=== PATIENT | female | born 1995 | race Caucasian/White ===

== ENCOUNTER 2017-04-21 20:14 | Emergency (ER) | payer OTHER ==
[2017-04-21 20:20] VITALS: BP 135/81; TEMP 98.1; BMI 33.0
--- NOTE | 2017-04-21 20:50 | ED.PDOC ---
General ED Provider: Dr. SEBASTIAN MCBRIDE Chief Complaint: Abdominal Pain Stated Complaint: Pateint reports diffuse abdominal cramping that started 5 days ago. occurs when as soon as she moves her bowels and last 4 days. The symtoms went away after 3 days but returned today. Time Seen by Physician: 20:47 Mode of Arrival: Walk-In Information Source: Patient Exam Limitations: No limitations Primary Care Provider: GERMAN ENCINAS Nursing and Triage Documentation Reviewed and Agree: Yes GI Complaint Exam - Abdominal Pain Complaint/Exam Onset: Gradual Duration: 5 days Symptoms Are: Resolved Timing: Intermittent Initial Severity: Severe Current Severity: None Location of Pain: Diffuse Radiates To: Reports: Inguinal. Denies: Chest, Back, Flank, LLQ, RLQ Character: Reports: Cramping Aggravating: Reports: None (except after bowel movement. ) Alleviating: Reports: None Associated Signs and Symptoms: Reports: Decreased appetite, Nausea. Denies: Diaphoresis, Fever, Cough, Chest pain, Dizziness, Back pain, Constipation, Blood in stool, Dysuria, Urinary frequency, Decreased urine output, Vaginal bleeding, Vaginal discharge, Vomiting, Diarrhea, Sore throat, Decreased activity AAA Risk Factors: Reports: None Cardiac Risk Factors: Reports: None Ectopic Risk Factors: Reports: None Ovarian Torsion Risk Factors: Reports: None Surgical Obstruction Risk Factors: Reports: None Related Surgical History: Reports: None Patient Rh Status: Unknown Differential Diagnoses: Irritable Bowel Syndrome, Ureteral Stone, UTI, , Ovarian Cyst Review of Systems - Review Of Systems Constitutional: Reports: Loss of appetite Eyes: Reports: No symptoms Ears, Nose, Mouth, Throat: Reports: No symptoms Respiratory: Reports: No symptoms GI: Reports: Abdominal pain : Reports: No symptoms Musculoskeletal: Reports: No symptoms Skin: Reports: No symptoms Neurological: Reports: No symptoms Endocrine: Reports: No symptoms All Other Systems: Reviewed and Negative Past Medical History - Past Medical History Previously Healthy: Yes Endocrine: Reports: Hypothyroid Cardiovascular: Reports: None Respiratory: Reports: None Hematological: Reports: None Gastrointestinal: Reports: None Genitourinary: Reports: None Neuro/Psych: Reports: None Musculoskeletal: Reports: None Cancer: Reports: None Last Menstrual Period: 04/21/17 - Surgical History General Surgical History: Reports: None - Family History Family History: Reports: None - Social History Smoking Status: Former smoker Hx Substance Use: No Alcohol Screening: None Physical Exam - Physical Exam Appearance: Ill-appearing, Obese Ill-appearing: None Pain Distress: None Eyes: DANIEL, EOMI, Conjunctiva clear Respiratory: Airway patent, Breath sounds clear, Breath sounds equal Cardiovascular: RRR, Pulses normal, No rub, No murmur GI/: Soft, Nontender, Bowel sounds normal Musculoskeletal: Normal strength, ROM intact, No edema, No calf tenderness Skin: Warm, Dry, Normal color Neurological: Sensation intact Psychiatric: Anxious Interpretation - Radiology Interpretation Radiology Interpretation By: ED Physician Radiology Results: Negative Exam Interpreted: Other (KUB ) Critical Care Note - Critical Care Note Total Time (mins): 0 Course - Course Hematology/Chemistry: 04/21/17 20:55 04/21/17 20:55 Orders, Labs, Meds: Lab Review 04/21/17 04/21/17 20:55 21:15 WBC 7.88 RBC 4.50 Hgb 13.3 Hct 37.6 MCV 83.6 MCH 29.6 MCHC 35.4 RDW Coeff of Nadeem 12.8 Plt Count 210 Immature Gran % (Auto) 0.1 Neut % (Auto) 74.4 Lymph % (Auto) 17.9 Edwards % (Auto) 6.0 Eos % (Auto) 1.3 Baso % (Auto) 0.3 Immature Gran # (Auto) 0.0 Neut # 5.9 Lymph # 1.4 Edwards # 0.5 Eos # 0.1 Baso # 0.0 Sodium 140 Potassium 3.9 Chloride 107 Carbon Dioxide 27 Anion Gap 9.9 BUN 9 Creatinine 0.69 Estimated GFR (MDRD) 108.00 BUN/Creatinine Ratio 13.04 Glucose 100 Calcium 9.2 Total Bilirubin 0.33 AST 23 ALT 22 Alkaline Phosphatase 118 H Total Protein 6.6 Albumin 3.7 Globulin 2.9 Albumin/Globulin Ratio 1.28 Amylase 58 Lipase 20 Urine Test Negative Orders Category Date Time Status AMYLASE Stat LAB 04/21/17 20:55 Completed CBC W/ AUTO DIFF Stat LAB 04/21/17 20:55 Completed COMPREHENSIVE METABOLIC PANEL Stat LAB 04/21/17 20:55 Completed LIPASE Stat LAB 04/21/17 20:55 Completed URINE Stat LAB 04/21/17 21:15 Completed KUB Stat RADS 04/21/17 20:48 Completed Vital Signs: Temp Pulse Resp BP Pulse Ox 06/15/17 20:15 98.1 F 87 16 135/81 98 Departure - Departure Time of Disposition: 21:55 Disposition: HOME SELF-CARE Discharge Problem: Abdominal pain Instructions: Abdominal Pain (ED) Condition: Good Pt referred to PMD for follow-up: Yes Additional Instructions: Take Bentyl as needed for Abdominal Cramping. Follow up with PCP in 3 days push fluids Prescriptions: Dicyclomine HCl [Bentyl] 10 mg PO TID #20 capsule Allergies/Adverse Reactions: Allergies lidocaine Adverse Reaction (Verified 10/17/16 08:13) Sulfa (Sulfonamide Antibiotics) Adverse Reaction (Verified 10/17/16 08:13) sulfamethoxazole [From Bactrim] Adverse Reaction (Verified 10/17/16 08:13) trimethoprim [From Bactrim] Adverse Reaction (Verified 10/17/16 08:13) Home Medications: Ambulatory Orders Dicyclomine HCl [Bentyl] 10 mg PO TID #20 capsule 04/21/17 Levothyroxine Sodium [Synthroid] 25 mcg PO DAILY 04/21/17 Disposition Discussed With: Patient, Family
[2017-04-21 21:00] LABS: BASOPHILS % (AUTO) 0.3 % (0.0-3.0); EOSINOPHILS # (AUTO) 0.1 K/ul (0.0-0.7); EOSINOPHILS % (AUTO) 1.3 % (0.0-7.0); HEMATOCRIT 37.6 % (37.0-47.0); HEMOGLOBIN 13.3 g/dl (12.0-16.0); IMMATURE GRANULOCYTE % (AUTO) 0.1 % (0.0-5.0); LYMPHOCYTES # (AUTO) 1.4 K/uL (0.60-3.4); LYMPHOCYTES % (AUTO) 17.9 (10.0-50.0); MEAN CORPUSCULAR HEMOGLOBIN 29.6 pg (27.0-31.0); MEAN CORPUSCULAR HGB CONC 35.4 (31.8-35.4); MEAN CORPUSCULAR VOLUME 83.6 fl (81.0-99.0); MONOCYTES # (AUTO) 0.5 K/uL (0.4-2.0); NEUTROPHILS # (AUTO) 5.9 K/ul (2.0-6.9); NEUTROPHILS % (AUTO) 74.4; PLATELET COUNT 210 10^3/uL (140-440); WHITE BLOOD COUNT 7.88 K/ul (4.6-10.2)
[2017-04-21 21:22] LABS: ALBUMIN 3.7 g/dL (3.4-5.0); ALBUMIN/GLOBULIN RATIO 1.28; ANION GAP 9.9; BILIRUBIN,TOTAL 0.33 mg/dL (0.00-1.20); BUN/CREATININE RATIO 13.04; CALCIUM 9.2 mg/dL (8.2-10.2); CREATININE 0.69 mg/dL (0.60-1.30); POTASSIUM 3.9 mmol/L (3.5-5.10); TOTAL PROTEIN 6.6 g/dL (6.4-8.2)
[2017-04-21 21:29] LABS: URINE PREGNANCY INTERNAL QC INTERNAL QC VALID
--- NOTE | 2017-04-21 21:47 | DI ---
Exam: Flat plate of the abdomen. Clinical indication: Abdominal cramping.. Findings: There is no free intra-abdominal gas on this supine radiograph. There is no abnormal bow el gas pattern. The soft tissues are grossly unremarkable. The visualized bony structures are unre markable. Impression: Unremarkable flat plate of the abdomen.
== END 2017-04-21 22:00 | disposition home or self-care (01) ==
LOC: ED 20:14
DX: R10.84 Generalized abdominal pain (principal)
CPT/HCPCS: 36415; 80053; 81025; 82150; 83690; 85025; 99283

== ENCOUNTER 2017-05-29 20:35 | Emergency (ER) | payer OTHER ==
[2017-05-29 20:46] VITALS: BMI 37.1
[2017-05-29] MEDS ORDERED: SODIUM CHLORIDE 1,000 ML IV STA ×2 (21:02)
[2017-05-29] MEDS ORDERED: TORADOL IVP STA (21:02)
[2017-05-29] MEDS ORDERED: ROCEPHIN 1 GM in SODIUM CHLORIDE 50 ML IV STA (21:02)
[2017-05-29 21:23] LABS: BASOPHILS % (AUTO) 0.2 % (0.0-3.0); EOSINOPHILS # (AUTO) 0.1 K/ul (0.0-0.7); EOSINOPHILS % (AUTO) 0.3 % (0.0-7.0); HEMATOCRIT 35.7 % (37.0-47.0); HEMOGLOBIN 12.5 g/dl (12.0-16.0); IMMATURE GRANULOCYTE % (AUTO) 0.3 % (0.0-5.0); LYMPHOCYTES # (AUTO) 0.8 K/uL (0.60-3.4); LYMPHOCYTES % (AUTO) 5.9 (10.0-50.0); MEAN CORPUSCULAR HEMOGLOBIN 29.6 pg (27.0-31.0); MEAN CORPUSCULAR VOLUME 84.6 fl (81.0-99.0); MONOCYTES # (AUTO) 0.8 K/uL (0.4-2.0); MONOCYTES % (AUTO) 5.3 (0-10); NEUTROPHILS # (AUTO) 12.6 K/ul (2.0-6.9); PLATELET COUNT 172 10^3/uL (140-440); RED BLOOD COUNT 4.22 10^6/ul (4.20-5.40); WHITE BLOOD COUNT 14.34 K/ul (4.6-10.2)
[2017-05-29 21:28] LABS: BILIRUBIN,URINE Negative (NEGATIVE); KETONES,URINE Negative (NEGATIVE); LEUKOCYTE ESTERASE ,URINE 2+ (NEGATIVE); NITRITE,URINE Negative (NEGATIVE); PROTEIN,URINE Negative (NEGATIVE); URINE, BLOOD Negative (NEGATIVE)
[2017-05-29 21:29] LABS: URINE PREGNANCY INTERNAL QC INTERNAL QC VALID
[2017-05-29 21:33] LABS: ADD URINE MICROSCOPIC YES
[2017-05-29 21:34] LABS: BACTERIA,URINE 1+ (NOT PRESENT)
[2017-05-29] MEDS ORDERED: ROCEPHIN ONE (21:37)
[2017-05-29 21:38] LABS: FLU INTERNAL QC INTERNAL QC VALID; RAPID FLU A NEGATIVE (NEGATIVE); RAPID FLU B NEGATIVE (NEGATIVE)
[2017-05-29 21:43] LABS: ALBUMIN 3.6 g/dL (3.4-5.0); ALBUMIN/GLOBULIN RATIO 1.09; ANION GAP 14.8; BUN/CREATININE RATIO 10.44; CALCIUM 8.6 mg/dL (8.2-10.2); CREATININE 0.67 mg/dL (0.60-1.30); POTASSIUM 3.8 mmol/L (3.5-5.10); TOTAL PROTEIN 6.9 g/dL (6.4-8.2)
--- NOTE | 2017-05-29 21:53 | CT ---
Exam: CT scan of the thorax without contrast. Date: 05/29/2017. Comparison: None. HISTORY: Cough and fever. TECHNIQUE: Helical scan of the thorax was performed without contrast. FINDINGS: The thoracic inlet axillary regions are normal. No suspicious mediastinal adenopathy is seen. The caliber of the thoracic aorta and cardiac chambers are normal. The upper spleen and live r have a uniform attenuation. The thoracic spine and ribs are normal. Evaluation at lung window settings does not demonstrate any suspicious pulmonary nodules, pleural fl uid or consolidation. The tracheobronchial tree is patent. Impression: No acute intrathoracic findings.
--- NOTE | 2017-05-29 22:05 | CT ---
EXAM: CT abdomen pelvis without contrast HISTORY: Fever, history UTI COMPARISON: 12/07/2014 TECHNIQUE: Serial axial images of the abdomen pelvis were performed from the lung bases through the inferior pelvis without contrast. These were viewed in multiple planes. FINDINGS: Images of the lower thorax show no pulmonary infiltrate. No pleural fluid is seen. Abdomen. There is no intrperitoneal free air. The liver, spleen, pancreas, adrenal glands are unremarkable. There is no renal calculus. No obstruction of either kidney or ureter is seen. There is no cholel ithiasis or biliary ductal dilatation seen. Aorta normal caliber. No abdominal adenopathy. The Th ere is no ascites. There is no small bowel obstruction or bowel wall thickening. The appendix is n ormal. Pelvis. Uterus is midline. There is a prominent 3.1 x 3.2 cm right ovarian/adnexal cyst. There is no free fluid the pelvis. IMPRESSION: 1. There is no bowel obstruction or inflammation. Appendix normal. 2. No renal calcification. No obstruction of either kidney or ureter. No perinephric edema. 3. No cholelithiasis or biliary duct dilatation. 4. There is a prominent 3.1 x 3.2 cm right ovarian/adnexal cyst. Follow-up outpatient ultrasound c ould be performed to further assess.
[2017-05-29] MEDS ORDERED: PHENERGAN 25 MG/ML VIAL 12.5 MG in SODIUM CHLORIDE 50 ML IV STA (22:10)
[2017-05-29] MEDS ORDERED: DILAUDID 1 MG/ML SYRINGE IVP STA (22:10)
[2017-05-29] MEDS ORDERED: PHENERGAN 25 MG/ML VIAL ONE (22:38)
[2017-05-29] MEDS ORDERED: VERSED ONE (22:40)
--- NOTE | 2017-05-29 22:42 | CT ---
EXAM: CT scan brain without contrast HISTORY: Headache COMPARISON: None. FINDINGS: Contiguous axial images obtained from the skull base to the convexities without contrast utilizing 5-mm collimation. Sagittal and coronal reconstructions were imaged reviewed. The ventric les and CSF spaces are within normal limits. There are no acute intracranial findings. The visuali zed paranasal sinuses and mastoid air cells are clear. The bony calvarium is intact. IMPRESSION: No acute intracranial findings.
--- NOTE | 2017-05-29 23:21 | ED.PDOC ---
Conscious Sedation - Pre-op Assessment Weight: 230 lb NPO Since: p1600 Procedure: lumbar puncture Surgical History: NONE Previous Anesthesia Difficulty: No Level Of Consciousness: Awake - Medical History Past Medical History: Thyroid, Anemia Other History: FREQUENT KIDNEY INFECTIONS - Physical Exam Heart Rate/Rhythm: Regular Rhythm, Regular Rate Lung Sounds: Clear HEENT Within Normal Limits: Yes Test Negative: Yes - Anesthesia Care Plan Anes. Plan Discussed with Patient/Family Permit Signed: Yes Risk and Benefits Discussed with Patient and Family: Yes Patient and Family Agree and Understand: Yes All Patient's and Family's Questions Answered: Yes - Procedure Start Time of Procedure: 22:45 End Time of Procedure: 23:05 - Post-Op Anesthesia Follow-up Time of Post-Anesthesia Follow-up: 23:30 (no after anes problems noted, pt discharged within 24 hr.)
--- NOTE | 2017-05-29 23:23 | ED.PDOC ---
Procedures - Lumbar Puncture Position of Patient: Lateral Decubitis Local Anesthetic Used: Yes Gauge of Spinal needle: 22 Lumbar Space Used for Insertion: L 4/5 Number of Attempts: 1 Spinal Fluid Obtained: Yes Fluid Description: Present: Clear Opening Pressure (mm/H2O): 34cm H2O Conscious Sedation - Pre-op Assessment Weight: 230 lb NPO Since: p1600 Procedure: lumbar puncture Surgical History: NONE Previous Anesthesia Difficulty: No Level Of Consciousness: Awake - Medical History Past Medical History: Thyroid, Anemia Other History: FREQUENT KIDNEY INFECTIONS - Physical Exam Heart Rate/Rhythm: Regular Rhythm, Regular Rate Lung Sounds: Clear HEENT Within Normal Limits: Yes Test Negative: Yes
--- NOTE | 2017-05-29 23:43 | ED.PDOC ---
General ED Provider: Dr. EDWINA OLIVERA-ER Chief Complaint: Fever Stated Complaint: ayush had fever and de [place] since last night Time Seen by Physician: 20:40 Mode of Arrival: Walk-In Information Source: Patient Exam Limitations: No limitations Primary Care Provider: GERMAN ENCINAS Nursing and Triage Documentation Reviewed and Agree: Yes Neurological Complaint Exam - Headache Complaint/Exam Onset: Gradual Duration: several hours Symptoms Are: Still present Timing: Constant Episodes Lasting: Hours Worst Headache Ever: No Initial Severity: Mild Current Severity: Moderate Location: Diffuse Character: Reports: Dull, Throbbing, Pressure Aggravating: Reports: Bright lights Alleviating: Reports: None Associated Signs and Symptoms: Reports: Nausea, Fever. Denies: Dizziness, Seizure, Vomiting, Sinus pressure, Neck pain, Neck stiffness, Visual changes Related History: Denies: Recent trauma, Remote trauma Related Surgical History: Reports: None SAH Risk Factors: Reports: None Meningitis Risk Factors: Reports: None SDH Risk Factors: Reports: None Temporal Arteritis Risk Factors: Reports: Female, Normal Head CT Within Last 12 Months: No Fundoscopic Exam: Present: Normal Findings Papilledema Present: No Temporal Artery Tenderness: Present: None Sinus Tenderness: Present: None TMJ Tenderness: Present: None Glascow Coma Scale (see protocol): 15 Meningeal Signs Positive: No Pain on Passive Flexion-Positive Kernig's: No ROM Limited In: No Limitiations Focal Weakness: Present: None Focal Sensory Loss: Present: None Gait: Normal Nystagmus Present: No Gag Reflex Present: Yes [id number]: Normal Findings Romberg Test Positive: No Babinski Sign: Negative Right, Negative Left Heel to Toe Normal: Yes Differential Diagnoses: Meningitis, Viral Syndrome, Other Review of Systems - Review Of Systems Constitutional: Reports: Chills, Fever, Weakness Eyes: Reports: No symptoms Ears, Nose, Mouth, Throat: Reports: No symptoms Respiratory: Reports: No symptoms Cardiac: Reports: No symptoms GI: Reports: No symptoms : Reports: No symptoms Musculoskeletal: Reports: Muscle pain Skin: Reports: No symptoms Neurological: Reports: No symptoms Endocrine: Reports: No symptoms Hematologic/Lymphatic: Reports: No symptoms All Other Systems: Reviewed and Negative Past Medical History - Past Medical History Previously Healthy: Yes Endocrine: Reports: Hypothyroid Cardiovascular: Reports: None Respiratory: Reports: None Hematological: Reports: None Gastrointestinal: Reports: None Genitourinary: Reports: None Neuro/Psych: Reports: None Musculoskeletal: Reports: None Cancer: Reports: None Last Menstrual Period: 35 DAYS AGO, PERIODS ARE NOT REGULAR - Surgical History General Surgical History: Reports: None - Family History Family History: Reports: None - Social History Smoking Status: Current every day smoker, Light tobacco smoker Hx Substance Use: No Alcohol Screening: None Lives: With family - Immunizations Tetanus Shot up to Date: Yes (TDAP 2015) Physical Exam - Physical Exam Appearance: Well-appearing, No pain distress, Well-nourished Pain Distress: Moderate Eyes: DANIEL, EOMI, Conjunctiva clear ENT: Ears normal, Nose normal, Oropharynx normal Neck: Supple Respiratory: Airway patent Cardiovascular: RRR, Pulses normal, No rub, No murmur GI/: Soft, Nontender, No masses, Bowel sounds normal, No Organomegaly Musculoskeletal: Normal strength, ROM intact, No edema, No calf tenderness Skin: Warm Neurological: Sensation intact, Alert, Oriented Psychiatric: Affect appropriate, Mood appropriate Interpretation - Radiology Interpretation Radiology Interpretation By: Radiologist Radiology Results: Negative Exam Interpreted: CT Scan Procedures - Lumbar Puncture Position of Patient: Lateral Decubitis Local Anesthetic Used: Yes Gauge of Spinal needle: 22 Lumbar Space Used for Insertion: L4 Number of Attempts: 1 Spinal Fluid Obtained: Yes Fluid Description: Present: Clear Opening Pressure (mm/H2O): 30 Re-Evaluation - Re-Evaluation Time of Re-Evaluation: 05:54 Status: Improved (no de [place] ve[place] or fever) Vital Signs Stable: Yes Pain Level: 1 Appearance: NAD Lungs: Clear Skin: Warm and Dry Neuro: Alert and Oriented X3 CV: RRR Critical Care Note - Critical Care Note Total Time (mins): 30 Course - Course Hematology/Chemistry: 05/29/17 21:15 05/29/17 21:15 Orders, Labs, Meds: Lab Review 05/29/17 05/29/17 05/29/17 21:02 21:15 23:06 WBC 14.34 H RBC 4.22 Hgb 12.5 Hct 35.7 L MCV 84.6 MCH 29.6 MCHC 35.0 RDW Coeff of Nadeem 13.0 Plt Count 172 Immature Gran % (Auto) 0.3 Neut % (Auto) 88.0 Lymph % (Auto) 5.9 L Thayer % (Auto) 5.3 Eos % (Auto) 0.3 Baso % (Auto) 0.2 Immature Gran # (Auto) 0.0 Neut # 12.6 H Lymph # 0.8 Thayer # 0.8 Eos # 0.1 Baso # 0.0 Sodium 138 Potassium 3.8 Chloride 105 Carbon Dioxide 22 Anion Gap 14.8 BUN 7 Creatinine 0.67 Estimated GFR (MDRD) 112.00 BUN/Creatinine Ratio 10.44 Glucose 98 Lactic Acid 10.0 Calcium 8.6 Total Bilirubin 1.00 AST 33 ALT 28 Alkaline Phosphatase 151 H Total Protein 6.9 Albumin 3.6 Globulin 3.3 Albumin/Globulin Ratio 1.09 Amylase 47 Lipase 11 Procalcitonin < 0.05 Urine Color Yellow Urine Clarity Slightly Urine pH 7.[address] [place] 1.015 Urine Protein Negative Urine Glucose (UA) Negative Urine Ketones Negative Urine Blood Negative Urine Nitrite Negative Urine Bilirubin Negative Urine Urobilinogen 1.0 Ur Leukocyte Esterase 2+ Urine Microscopic WBC 5-10 Ur Squamous Epith Cells 2-5 Urine Bacteria 1+ Urine Test Negative CSF Appearance Clear CSF Color Colorless CSF WBC Comment 2 CSF RBC Comment 0 CSF Neutrophils % 2 CSF Lymphocytes % 0 L CSF Monocytes % 0 L CSF Eosinophils % 0 CSF Basophils % 0 Influenza A (Rapid) Negative Influenza B (Rapid) Negative Orders Category Date Time Status ED IV/MEDIPORT/POWERPORT .ONCE EMERGENCY 05/29/17 21:02 Active AMYLASE Stat LAB 05/29/17 21:15 Completed BLOOD CULTURE Stat LAB 05/29/17 21:15 Received CBC W/ AUTO DIFF Stat LAB 05/29/17 21:15 Completed CEREBROSPINAL FLUID CULTURE Stat LAB 05/29/17 23:06 Received COMPREHENSIVE METABOLIC PANEL Stat LAB 05/29/17 21:15 Completed CSF CELL COUNT WITH DIFF Stat LAB 05/29/17 23:06 Completed EHRLICHIA DNA, PCR Stat LAB 05/29/17 21:15 Received GLUCOSE,CSF Stat LAB 05/29/17 23:06 Received LACTIC ACID Stat LAB 05/29/17 21:15 Completed LIPASE Stat LAB 05/29/17 21:15 Completed MOLECULAR GROUP A STREP Stat LAB 05/29/17 21:02 Results PROCALCITONIN Stat LAB 05/29/17 21:15 Completed PROTEIN [TOTAL PROTEIN,CSF] Stat LAB 05/29/17 23:06 Received RAPID FLU A/B Stat LAB 05/29/17 21:02 Completed [facility] SPOTTED FEVER,IgG Stat LAB 05/29/17 21:15 Received ROLA MCGOWAN SPOTTED FEVER,IgM Stat LAB 05/29/17 21:15 Received STREP SCREEN Stat LAB 05/29/17 21:02 Results URINALYSIS C & S IF INDICATED Stat LAB 05/29/17 21:02 Completed URINE CULTURE Stat LAB 05/29/17 21:34 Received URINE Stat LAB 05/29/17 21:02 Completed 0.9 % Sodium Chloride [Saline Flush] MEDS 05/29/17 21:02 Ordered 1 syr IVF PRN PRN Acetaminophen [Tylenol] MEDS 05/30/17 00:52 Discontinued 650 mg PO ONCE STA Ceftriaxone Sodium [Rocephin] MEDS 05/29/17 21:37 Discontinued 1 gm .ROUTE .STK-MED ONE Ceftriaxone Sodium [Rocephin] 1 gm MEDS 05/29/17 21:02 Discontinued 0.9 % Sodium Chloride [Sodium Chloride] 50 ml IV ONCE Diphenhydramine Inj [Benadryl] MEDS 05/30/17 02:54 Discontinued 25 mg IVP ONCE STA Doxycycline Hyclate Inj [Doxy-100] 100 mg MEDS 05/30/17 01:31 Discontinued 0.9 % Sodium Chloride [Sodium Chloride] 250 ml IV ONCE Hydromorphone HCl [Dilaudid 1 mg/ml Syringe] MEDS 05/30/17 00:52 Discontinued 0.5 mg IVP ONCE STA Hydromorphone HCl [Dilaudid 1 mg/ml Syringe] MEDS 05/29/17 22:10 Discontinued 1 mg IVP ONCE STA Ketorolac Tromethamine [Toradol] MEDS 05/29/17 21:02 Discontinued 30 mg IVP ONCE STA Midazolam HCl Inj [Versed] MEDS 05/29/17 22:40 Discontinued 5 mg .ROUTE .STK-MED ONE Promethazine HCl [Phenergan 25 mg/ml Vial] MEDS 05/29/17 22:38 Discontinued 25 mg .ROUTE .STK-MED ONE Promethazine HCl [Phenergan 25 mg/ml Vial] 12.5 mg MEDS 05/29/17 22:10 Discontinued 0.9 % Sodium Chloride [Sodium Chloride] 50 ml IV ONCE Sodium Chloride 0.9% [Sodium Chloride] 1,000 ml MEDS 05/29/17 21:02 Discontinued IV BOLUS Sodium Chloride 0.9% [Sodium Chloride] 1,000 ml MEDS 05/29/17 21:02 Discontinued IV BOLUS Vancomycin HCl [Vancomycin] 1 gm MEDS 05/29/17 23:49 Discontinued 0.9 % Sodium Chloride [Sodium Chloride] [address] ABDOMEN/PELVIS WO CONTRAST Stat RADS 05/29/17 21:[address] CHEST W/O CONTRAST Stat RADS 05/29/17 21:[address] HEAD W/O CONTRAST Stat RADS 05/29/17 22:12 Completed Medications Generic Name Dose Route Start Last Admin Trade Name Freq PRN Reason Stop Dose Admin Sodium Chloride 1 syr 05/29/17 21:02 05/29/17 22:06 Saline Flush IVF 1 syr PRN PRN Administration To flush IV Discontinued Medications Generic Name Dose Route Start Last Admin Trade Name Freq PRN Reason Stop Dose Admin Acetaminophen 650 mg 05/30/17 00:52 05/30/17 01:03 Tylenol PO 05/30/17 00:53 650 mg ONCE STA Administration Diphenhydramine HCl 25 mg 05/30/17 02:54 05/30/17 03:09 Benadryl IVP 05/30/17 02:55 25 mg ONCE STA Administration Hydromorphone HCl 1 mg 05/29/17 22:10 05/29/17 23:58 Dilaudid 1 Mg/Ml Syringe IVP 05/29/17 22:11 Not Given ONCE STA Hydromorphone HCl 0.5 mg 05/30/17 00:52 05/30/17 01:03 Dilaudid 1 Mg/Ml Syringe IVP 05/30/17 00:53 0.5 mg ONCE STA Administration Ceftriaxone Sodium 1 gm/ 50 mls @ 75 mls/hr 05/29/17 21:02 05/29/17 22:06 Sodium Chloride IV 05/29/17 21:41 75 mls/hr ONCE STA Administration Sodium Chloride 1,000 mls @ 1,000 mls/hr 05/29/17 21:02 05/29/17 22:06 Sodium Chloride IV 05/29/17 22:01 1,000 mls/hr BOLUS STA Administration Sodium Chloride 1,000 mls @ 500 mls/hr 05/29/17 21:02 05/30/17 03:10 Sodium Chloride IV 05/29/17 23:01 500 mls/hr BOLUS STA Administration Promethazine HCl 12.5 mg/ 50.5 mls @ 75 mls/hr 05/29/17 22:10 05/30/17 00:00 Sodium Chloride IV 05/29/17 22:50 Not Given ONCE STA Vancomycin HCl 1 gm/ Sodium 250 mls @ 250 mls/hr 05/29/17 23:49 05/30/17 00: 24 Chloride IV 05/30/17 00:48 250 mls/hr ONCE STA Administration Doxycycline Hyclate 100 mg/ 250 mls @ 100 mls/hr 05/30/17 01:31 05/30/17 01: 42 Sodium Chloride IV 05/30/17 04:00 100 mls/hr ONCE STA Administration Ketorolac Tromethamine 30 mg 05/29/17 21:02 05/29/17 22:06 Toradol IVP 05/29/17 21:03 30 mg ONCE STA Administration both she and her are quite certain no tick bites in the past 3 weeks Vital Signs: Temp Pulse Resp BP Pulse Ox 05/30/17 05:08 98.5 F 72 16 105/59 L 99 05/30/17 02:56 99.6 F 05/30/17 00:49 100.4 F H 05/29/17 20:36 101.6 F H 95 H 20 148/81 H 99 Departure - Departure Time of Disposition: 05:54 Disposition: HOME SELF-CARE Discharge Problem: Viral syndrome Instructions: Fever in Adults (ED) Condition: Good Pt referred to PMD for follow-up: Yes Additional Instructions: drink fluids today--careful in getting up from supine posiition....motrin for fever or pain===f/u with pcp Allergies/Adverse Reactions: Allergies lidocaine Adverse Reaction (Verified 05/29/17 20:45) Dizziness Sulfa (Sulfonamide Antibiotics) Adverse Reaction (Verified 05/29/17 20:45) Anaphylaxis sulfamethoxazole [From Bactrim] Adverse Reaction (Verified 05/29/17 20:45) Anaphylaxis trimethoprim [From Bactrim] Adverse Reaction (Verified 05/29/17 20:45) Anaphylaxis Home Medications: Ambulatory Orders Levothyroxine Sodium [Synthroid] 25 mcg PO DAILY 04/21/17 Dicyclomine HCl [Bentyl] 10 mg PO TID PRN 05/29/17 Disposition Discussed With: Patient, Family
[2017-05-29] MEDS ORDERED: VANCOMYCIN 1 GM in SODIUM CHLORIDE 250 ML IV STA (23:49)
[2017-05-30 00:03] LABS: APPEARANCE,CSF CLEAR (CLEAR); COLOR,CSF COLORLESS (COLORLESS)
[2017-05-30 00:04] LABS: BASOPHILS,CSF 0 % (0-1)
[2017-05-30] MEDS ORDERED: VERSED IVP STA (00:05)
[2017-05-30 00:07] LABS: WHITE BLOOD CELL,CSF 2 cells/mm (0-5)
[2017-05-30 00:08] LABS: LYMPHOCYTES,CSF 0 % (40-80)
[2017-05-30] MEDS ORDERED: TYLENOL PO STA (00:52)
[2017-05-30] MEDS ORDERED: DILAUDID 1 MG/ML SYRINGE IVP STA (00:52)
[2017-05-30] MEDS ORDERED: DOXY-100 100 MG in SODIUM CHLORIDE 250 ML IV STA (01:31)
[2017-05-30] MEDS ORDERED: BENADRYL IVP STA (02:54)
[2017-05-30 05:09] VITALS: BP 105/59; TEMP 98.5
== END 2017-05-30 06:00 | disposition home or self-care (01) ==
LOC: ED 20:35
DX: B34.9 Viral infection, unspecified (principal); F17.210 Nicotine dependence, cigarettes, uncomplicated
CPT/HCPCS: 36415; 62270; 80053; 81001; 81025; 82150; 82945; 83605; 83690; 84145; 84157; 85025; 86757; 87040; 87070; 87086; 87651; 87798; 87804; 87880; 89051; 96361; 96365; 96367; 96375; 99285

== ENCOUNTER 2018-06-24 03:43 | Emergency (ER) | payer OTHER ==
[2018-06-24 04:18] VITALS: BP 137/83; TEMP 98.4; BMI 37.9
[2018-06-24] MEDS ORDERED: MORPHINE 2 MG/ML SYRINGE IVP STA (04:24)
[2018-06-24] MEDS ORDERED: ZOFRAN 4 MG/2 ML IVP STA (04:24)
[2018-06-24] MEDS ORDERED: SODIUM CHLORIDE 1,000 ML IV STA (04:25)
--- NOTE | 2018-06-24 05:51 | ED.PDOC ---
General ED Provider: Dr. EDWINA OLIVERA-ER Chief Complaint: Chest Pain Stated Complaint: my chest hurts and it goes into my back Time Seen by Physician: 04:00 Mode of Arrival: Walk-In Information Source: Patient Exam Limitations: No limitations Primary Care Provider: GERMAN ENCINAS Nursing and Triage Documentation Reviewed and Agree: Yes Does patient meet sepsis criteria?: No System Inflammatory Response Syndrome: Not Applicable Sepsis Protocol: For patient's 13 years and over: Temp is 96.8 and below OR 101 and greater Pulse >90 BPM Resp >20/minute Acutely Altered Mental Status Are patient's symptoms suggestive of a new infection, such as: -Pneumonia -Skin, Soft Tissue -Endocarditis -UTI -Bone, Joint Infection -Implantable Device -Acute Abdominal Infection -Wound Infection -Meningitis -Blood Stream Catheter Infection -Unknown Cardiovascular Complaint Exam - Chest Pain Complaint/Exam Onset: Gradual Duration: 11/2 hrs Symptoms Are: Still present Timing: Constant Initial Severity: Mild Current Severity: Mild Location: Reports: Upper sternal Pain Radiates: Reports: Back Character: Reports: Dull, Pressure Aggravating: Reports: None Alleviating: Reports: None Associated Signs and Symptoms: Denies: Diaphoresis, Nausea, Vomiting, Fever, Palpitations, Cough, Hemoptysis, Back pain, Abdominal pain, Dizziness, Short of air, Calf pain, Calf swelling Related Surgical History: Reports: None History of Healthcare-Acquired Pneumonia: Reports: No AMI/ACS Risk Factors: Reports: None TAD Risk Factors: Reports: None Pulmonary Embolism Risk Factors: Reports: None Prior Care for this Complaint: No Recent Stress Test: No Recent Echo/LV Function: No JVD Present: No Subcutaneous Emphysema Present: No Diminshed Breath Sounds: No Reproducible Chest Wall Pain: No Bilateral Pulses Present: Yes Unequal Pulses Noted: No Quality Indicator For Non-Traumatic Chest Pain/Syncope: EKG Performed Review of Systems - Review Of Systems Constitutional: Reports: No symptoms Eyes: Reports: No symptoms Ears, Nose, Mouth, Throat: Reports: No symptoms Respiratory: Reports: No symptoms Cardiac: Reports: No symptoms GI: Reports: No symptoms : Reports: No symptoms Musculoskeletal: Reports: Back pain Skin: Reports: No symptoms Neurological: Reports: No symptoms Endocrine: Reports: No symptoms Hematologic/Lymphatic: Reports: No symptoms All Other Systems: Reviewed and Negative Past Medical History - Past Medical History Previously Healthy: Yes Endocrine: Reports: Hypothyroid Cardiovascular: Reports: None Respiratory: Reports: None Hematological: Reports: None Gastrointestinal: Reports: None Genitourinary: Reports: None Neuro/Psych: Reports: None Musculoskeletal: Reports: None Cancer: Reports: None Last Menstrual Period: 2017 - Surgical History General Surgical History: Reports: None - Family History Family History: Reports: None - Social History Smoking Status: Former smoker Hx Substance Use: No Alcohol Screening: None - Immunizations Tetanus Shot up to Date: Yes Physical Exam - Physical Exam Appearance: Well-appearing, No pain distress, Well-nourished Eyes: DANIEL, EOMI, Conjunctiva clear ENT: Ears normal, Nose normal, Oropharynx normal Neck: Supple Respiratory: Airway patent Cardiovascular: RRR GI/: Soft, Nontender, No masses, Bowel sounds normal, No Organomegaly Musculoskeletal: Normal strength, ROM intact, No edema, No calf tenderness Skin: Warm, Dry, Normal color Neurological: Sensation intact, Motor intact, Reflexes intact, Cranial nerves intact, Alert, Oriented Psychiatric: Affect appropriate, Mood appropriate Interpretation - Radiology Interpretation Radiology Interpretation By: Radiologist Radiology Results: Positive Exam Interpreted: CT Scan - EKG Interpretation Time of EKG #1: 06:02 Rate: Normal Rhythm: Sinus Ectopy: None Jackson: NL ST Segment: Normal Interpretation: nsr Physician Notification - Case Discussed Physician Notified: dr marie Time of Notification: 06:37 Critical Care Note - Critical Care Note Total Time (mins): 30 Course - Course Hematology/Chemistry: 06/24/18 04:20 06/24/18 04:20 Orders, Labs, Meds: Lab Review 06/24/18 06/24/18 06/24/18 04:20 04:20 04:20 WBC 7.01 RBC 4.29 Hgb 12.7 Hct 37.0 MCV 86.2 MCH 29.6 MCHC 34.3 RDW Coeff of Nadeem 13.2 Plt Count 170 Immature Gran % (Auto) 0.3 Neut % (Auto) 66.6 Lymph % (Auto) 23.5 [place] % (Auto) 6.4 Eos % (Auto) 3.1 Baso % (Auto) 0.1 Immature Gran # (Auto) 0.0 Neut # (Auto) 4.7 Lymph # (Auto) 1.7 [place] # (Auto) 0.5 Eos # (Auto) 0.2 Baso # (Auto) 0.0 Sodium 141 Potassium 3.8 Chloride 106 Carbon Dioxide 27 Anion Gap 11.8 BUN 12 Creatinine 0.69 Estimated GFR (MDRD) 107.00 BUN/Creatinine Ratio 17.39 Glucose 90 Calcium 8.9 Total Bilirubin 0.7 AST 74 H ALT 36 Alkaline Phosphatase 234 H Total Creatine Kinase Troponin I Total Protein 6.2 L Albumin 3.3 L Globulin 2.9 Albumin/Globulin Ratio 1.14 Amylase 57 Lipase 26 Serum , Qual Negative 06/24/18 04:20 WBC RBC Hgb Hct MCV MCH MCHC RDW Coeff of Nadeem Plt Count Immature Gran % (Auto) Neut % (Auto) Lymph % (Auto) [place] % (Auto) Eos % (Auto) Baso % (Auto) Immature Gran # (Auto) Neut # (Auto) Lymph # (Auto) [place] # (Auto) Eos # (Auto) Baso # (Auto) Sodium Potassium Chloride Carbon Dioxide Anion Gap BUN Creatinine Estimated GFR (MDRD) BUN/Creatinine Ratio Glucose Calcium Total Bilirubin AST ALT Alkaline Phosphatase Total Creatine Kinase 50 Troponin I < 0.0100 Total Protein Albumin Globulin Albumin/Globulin Ratio Amylase Lipase Serum , Qual Orders Category Date Time Status EKG-(ED ONLY) Stat CARDIO 06/24/18 04:16 Completed NPO REMINDER: IMAGING ONCE CARE 06/24/18 04:18 Active NPO REMINDER: IMAGING ONCE CARE 06/24/18 04:25 Active Cake Press Operator Helper [ED TELEHEALTH CASE MANAGER APPLIED] .ONCE EMERGENCY 06/24/18 04:17 Active IV [ED IV/MEDIPORT/POWERPORT] .ONCE EMERGENCY 06/24/18 04:17 Active AMYLASE Stat LAB 06/24/18 04:20 Completed CBC W/ AUTO DIFF Stat LAB 06/24/18 04:20 Completed COMPREHENSIVE METABOLIC PANEL Stat LAB 06/24/18 04:20 Completed CREATINE KINASE Stat LAB 06/24/18 04:20 Completed LIPASE Stat LAB 06/24/18 04:20 Completed SERUM Stat LAB 06/24/18 04:20 Completed TROPONIN I Stat LAB 06/24/18 04:20 Completed 0.9 % Sodium Chloride [Saline Flush] MEDS 06/24/18 04:17 Ordered 1 syr IVF PRN PRN Morphine Sulfate [Morphine 2 mg/ml Syringe] MEDS 06/24/18 04:24 Discontinued 2 mg IVP ONCE STA Ondansetron HCl/Pf [Zofran 4 mg/2 ml] MEDS 06/24/18 04:24 Discontinued 4 mg IVP ONCE STA Sodium Chloride 0.9% [Sodium Chloride] 1,000 ml MEDS 06/24/18 04:25 Active IV 100 mls/hr CT ABDOMEN/PELVIS W CONTRAST Stat RADS 06/24/18 04:[address] CHEST PE PROTOCOL Stat RADS 06/24/18 04:18 Completed Medications Generic Name Dose Route Start Last Admin Trade Name Freq PRN Reason Stop Dose Admin Sodium Chloride 1,000 mls @ 100 mls/hr 06/24/18 04:25 06/24/18 04:31 Sodium Chloride IV 06/24/18 14:24 100 mls/hr .Q10H STA Administration Sodium Chloride 1 syr 06/24/18 04:17 06/24/18 04:35 Saline Flush IVF 1 syr PRN PRN Administration To flush IV Discontinued Medications Generic Name Dose Route Start Last Admin Trade Name Freq PRN Reason Stop Dose Admin Morphine Sulfate 2 mg 06/24/18 04:24 06/24/18 04:33 Morphine 2 Mg/Ml Syringe IVP 06/24/18 04:25 2 mg ONCE STA Administration Ondansetron HCl 4 mg 06/24/18 04:24 06/24/18 04:32 Zofran 4 Mg/2 Ml IVP 06/24/18 04:25 4 mg ONCE STA Administration Vital Signs: Temp Pulse Resp BP Pulse Ox 06/24/18 03:45 98.4 F 69 18 137/83 97 SHIRA Risk Score SHIRA Risk Score: Risk Score Odds of by 30D 0 0.1 (0.1-0.2) 1 0.3 (0.2-0.3) 2 0.4 (0.3-0.5) 3 0.7 (0.6-0.9) 4 1.2 (1.0-1.5) 5 2.2 (1.9-2.6) 6 3.0 (2.5-3.6) 7 4.8 (3.8-6.1) Departure - Departure Time of Disposition: 06:38 Disposition: TSF SHORT-TRM HOSP Discharge Problem: Pulmonary embolism Qualifiers: Pulmonary embolism type: other Chronicity: acute Acute cor pulmonale presence: without acute cor pulmonale Qualified Code(s): I26.99 - Other pulmonary embolism without acute cor pulmonale Instructions: Pulmonary Embolism (ED) Condition: Good Pt referred to PMD for follow-up: No IPMP verified?: No Allergies/Adverse Reactions: Allergies hydromorphone [From Dilaudid] Adverse Reaction (Verified 06/24/18 03:53) SWELLING/ITCHING/RASH lidocaine Adverse Reaction (Verified 05/29/17 20:45) Dizziness Sulfa (Sulfonamide Antibiotics) Adverse Reaction (Verified 05/29/17 20:45) Anaphylaxis sulfamethoxazole [From Bactrim] Adverse Reaction (Verified 05/29/17 20:45) Anaphylaxis trimethoprim [From Bactrim] Adverse Reaction (Verified 05/29/17 20:45) Anaphylaxis Home Medications: Ambulatory Orders Ibuprofen 600 mg PO Q6H PRN 06/24/18 Vit No.129/Iron/Folic [ One Daily Tablet] 1 each PO DAILY 06/24 Transfer Form Completed: Yes Disposition Discussed With: Patient, Family
--- NOTE | 2018-06-24 06:10 | CT ---
Exam: CT of the abdomen and pelvis with contrast History: Upper abdomen pain Technique: [address] of the abdomen and pelvis following intravenous contrast FINDINGS: The lung bases are clear. No significant liver abnormality. The adrenals, pancreas and spl een are unremarkable. The stomach and hiatus are unremarkable.The gallbladder appears normal. Kidneys and proximal collecting system are unremarkable. The appendix is normal. Bowel loops demonstrate nor mal caliber. No inflamatory change seen in the mesentery or retroperitoneum. Vascular structures appe ar normal. Pelvic genitourinary structures appear normal. Pelvic bowel loops are unremarkable. No inflammatory c hange in the pelvic fat. No acute abnormality of the abdominal or pelvic skeleton. Impression: 1. No inflammatory process, bowel or urinary obstruction is seen. No acute findings of the abdomen or pelvis.
--- NOTE | 2018-06-24 06:31 | CT ---
Exam: CT angiography of the chest History: Chest pain Technique: [address] of the chest utilizing CT angiography protocol. Multiplanar and max imum intensity projection reformations were performed. FINDINGS: Technically adequate for evaluation of pulmonary arteries and aorta. Single segment fillin g defect of the posterior right lower lobe pulmonary artery. Lung windows show no pulmonary parenchym al abnormalities. Normal heart, great vessels and pericardium. No pathologic lymph node enlargement or abundance. No abnormality of the chest wall soft tissues or bony thorax. No abnormality of the upper abdomen. The gallbladder is moderately distended. Impression: 1. Critical result: Single segment filling defect of the posterior right lower lobe pulmonary arter y could represent small pulmonary artery embolus. Small thrombus burden. 2. No acute findings of the chest otherwise 3. Moderately distended gallbladder with extrahepatic biliary prominence. Correlate for symptoms. Discussed with ordering physician at 0626 hours Central time
[2018-06-24] MEDS ORDERED: LOVENOX SUBCUT STA (06:43)
== END 2018-06-24 07:10 | disposition short-term general hospital (02) ==
LOC: ED 03:43
DX: I26.99 Other pulmonary embolism without acute cor pulmonale (principal); R07.9 Chest pain, unspecified; E03.9 Hypothyroidism, unspecified; R06.02 Shortness of breath; M54.9 Dorsalgia, unspecified; Z98.890 Other specified postprocedural states
CPT/HCPCS: 36415; 80053; 82150; 82550; 83690; 84484; 84703; 85025; 93005; 93010; 96361; 96372; 96374; 96375; 99285

== ENCOUNTER 2018-07-03 15:21 | Outpatient (CLI) | payer OTHER | END 2018-07-03 15:22 | disposition home or self-care (01) | LOC: LAB 15:21 | PROVIDERS: ATTEND Physician Assistant Medical | DX: Z51.81 Encounter for therapeutic drug level monitoring (principal); Z79.01 Long term (current) use of anticoagulants | CPT/HCPCS: 36415; 85610 ==

== ENCOUNTER 2019-01-17 09:03 | Outpatient (CLI) ==
--- NOTE | 2019-01-17 10:05 | US ---
EXAM: PELVIC ULTRASOUND COMPLETE HISTORY: Amenorrhea FINDINGS: Ultrasound pelvis transvaginal. Transvaginal approach imaging was performed for improved resolution and anatomic definition. The uterus measured 6.3 x 4.5 x 5.9 cm. No myometrial masses or fibroids were obvious. The endometr ial stripe is thickened at nearly 1.5 cm. There is a prominent periuterine venous complex incidental ly noted. The right ovary measured 3.7 x 2.5 x 3.0 cm and the left ovary measured 2.7 x 1.8 x 1.7 cm. The ovar ies appeared to have adequate blood flow. Scattered follicles on the ovaries were identified with th e largest located on the right measuring up to about 2 cm. No ascites was identified. IMPRESSION: 1. Thickened endometrium. 2. Multiple small follicles on the ovaries with the largest located on the right ovary at 2 cm.
== END 2019-01-17 09:04 | disposition home or self-care (01) ==
LOC: RAD 09:03
PROVIDERS: ATTEND Physician Assistant
DX: N91.2 Amenorrhea, unspecified (principal)

== ENCOUNTER 2019-03-16 10:31 | Outpatient (CLI) ==
--- NOTE | 2019-03-16 13:25 | US ---
EXAM: Right upper quadrant abdominal ultrasound. History: Abnormal liver function tests. Comparison: CT abdomen pelvis 06/24/2018 Technique: Multiple sonographic images through the abdomen were obtained. Color duplex Doppler was used to interrogate vascular flow. Findings: The liver is not enlarged. The periportal echoes within the liver are maintained. No focal liver le sions. No abdominal ascites. The visualized pancreas demonstrates no gross abnormality. Status pos t cholecystectomy. Common bile duct measures 0.5 cm in caliber. There is antegrade flow within the main portal vein. The liver is not echogenic compared to the adjacent right renal cortex. Limited visualization of the right kidney demonstrates no abnormality. Impression: Status post cholecystectomy. Examination is otherwise unremarkable.
== END 2019-03-16 10:32 | disposition home or self-care (01) ==
LOC: RAD 10:31
PROVIDERS: ATTEND Physician Assistant
DX: R94.5 Abnormal results of liver function studies (principal)